=== PATIENT | male | born 1950 | race Caucasian/White ===

== ENCOUNTER 2020-05-30 20:08 | Emergency (ER) | payer MEDICARE ==
[~2020-05-30] VITALS: Ht 182.9 cm; Wt 86.0 kg
[2020-05-30 20:57] LABS: BASOPHILS # (AUTO) 0.1 X10'3 (0-0.2); BASOPHILS % (AUTO) 0.7 % (0-1); EOSINOPHILS # (AUTO) 0.1 X10'3 (0-0.9); EOSINOPHILS % (AUTO) 1.5 % (0-6); HEMATOCRIT 46.4 % (42.0-52.0); HEMOGLOBIN 15.7 g/dl (14.0-17.9); LYMPHOCYTES # (AUTO) 0.9 X10'3 (1.1-4.8); LYMPHOCYTES % (AUTO) 10.7 % (21-51); MEAN CORPUSCULAR HEMOGLOBIN 30.9 PG (27.0-31.0); MEAN CORPUSCULAR HGB CONC 33.9 g/dL (33.0-36.5); MEAN PLATELET VOLUME 8.3 FL (7.4-10.4); MONOCYTES # (AUTO) 0.5 X10'3 (0-0.9); NEUTROPHILS % (AUTO) 81.1 % (42-75); PLATELET COUNT 144 X10'3 (140-440); RED CELL DISTRIBUTION WIDTH 14.4 % (11.5-14.5); WHITE BLOOD COUNT 8.7 X10'3 (4.5-11.0)
[2020-05-30 21:09] LABS: ALANINE AMINOTRANSFERASE 22 U/L (12-78); ALBUMIN 3.7 G/DL (3.4-5.0); ALKALINE PHOSPHATASE 103 IU/L (46-116); ANION GAP 13 (8-16); ASPARTATE AMINO TRANSFERASE 16 U/L (10-37); BILIRUBIN,TOTAL 0.8 MG/DL (0.1-1.0); BLOOD UREA NITROGEN 13 MG/DL (7-18); BUN/CREATININE RATIO 13.1 (5.4-32.0); CALCIUM 8.8 MG/DL (8.5-10.1); CHLORIDE 104 MMOL/L (99-107); CREATININE 0.99 MG/DL (0.60-1.10); GLUCOSE 154 MG/DL (70-104); POTASSIUM 3.6 MMOL/L (3.5-5.1); SODIUM 140 MMOL/L (135-145); TOTAL CARBON DIOXIDE 23.4 MMOL/L (24-32); TOTAL PROTEIN 7.3 G/DL (6.4-8.2); eGFR 75 ML/MIN
[2020-05-30] MEDS ORDERED: AMOX-14 PO (22:01)
[2020-05-30] MEDS ORDERED: AZIT-63 PO (22:01)
[2020-05-30] MEDS ORDERED: ALBU8.5H8 INH (22:12)
[2020-05-30] MEDS ORDERED: ketorolac tromethamine 15mg/ml inj. IV ONE (22:20)
[2020-05-30 22:49] VITALS: BP 139/81
== END 2020-05-30 22:51 | disposition home or self-care (01) ==
LOC: ER 20:09
DX: J90 Pleural effusion, not elsewhere classified (principal); I10 Essential (primary) hypertension; F12.90 Cannabis use, unspecified, uncomplicated; Z87.891 Personal history of nicotine dependence; Z79.899 Other long term (current) drug therapy
CPT/HCPCS: 36415; 71045; 80053; 83880; 84484; 85025; 93005; 96374; 99285; J1885

== ENCOUNTER 2020-06-09 12:30 | Inpatient (IN) | payer MEDICARE, OTHER ==
[2020-06-09] VITALS (14 sets, daily range): BP systolic 127–160; BP diastolic 71–95
[~2020-06-09] VITALS: Ht 182.9 cm; Wt 86.8 kg
[~2020-06-09 12:30] MED LIST: ALBU8.5H8 INH
[2020-06-09 12:58] LABS: BASOPHILS # (AUTO) 0.1 X10'3 (0-0.2); BASOPHILS % (AUTO) 0.6 % (0-1); EOSINOPHILS % (AUTO) 0.1 % (0-6); HEMATOCRIT 32.8 % (42.0-52.0); HEMOGLOBIN 10.9 g/dl (14.0-17.9); LYMPHOCYTES # (AUTO) 1.1 X10'3 (1.1-4.8); LYMPHOCYTES % (AUTO) 4.9 % (21-51); MEAN CORPUSCULAR HEMOGLOBIN 30.5 PG (27.0-31.0); MEAN CORPUSCULAR HGB CONC 33.1 g/dL (33.0-36.5); MEAN CORPUSCULAR VOLUME 92.2 FL (78-98); MONOCYTES # (AUTO) 0.8 X10'3 (0-0.9); MONOCYTES % (AUTO) 3.5 % (2-12); NEUTROPHILS # (AUTO) 20.9 X10'3 (1.8-7.7); NEUTROPHILS % (AUTO) 90.9 % (42-75); PLATELET COUNT 550 X10'3 (140-440); RED BLOOD COUNT 3.56 X10'6 (4.70-6.10)
[2020-06-09 13:04] LABS: ALANINE AMINOTRANSFERASE 35 U/L (12-78); ALBUMIN 2.9 G/DL (3.4-5.0); ALBUMIN/GLOBULIN RATIO 0.7 (1.1-1.5); ALKALINE PHOSPHATASE 105 IU/L (46-116); ANION GAP 12 (8-16); ASPARTATE AMINO TRANSFERASE 18 U/L (10-37); BILIRUBIN,TOTAL 0.6 MG/DL (0.1-1.0); BLOOD UREA NITROGEN 18 MG/DL (7-18); BUN/CREATININE RATIO 16.7 (5.4-32.0); CALCIUM 9.3 MG/DL (8.5-10.1); CHLORIDE 98 MMOL/L (99-107); CREATININE 1.08 MG/DL (0.60-1.10); GLUCOSE 154 MG/DL (70-104); POTASSIUM 3.5 MMOL/L (3.5-5.1); SODIUM 133 MMOL/L (135-145); TOTAL CARBON DIOXIDE 23.3 MMOL/L (24-32); eGFR 68 ML/MIN
[2020-06-09] MEDS ORDERED: ondansetron/PF 4mg/2ml inj IV ONE (13:15)
[2020-06-09] MEDS ORDERED: morphine 4 MG/ML inj SYRINge IV ONE (13:15)
[2020-06-09] MEDS ORDERED: normal saline 1000ML IV soln IV ONE (13:45)
[2020-06-09] MEDS ORDERED: piperacillin/tazo 3.375gm/50ml 50 ML IV ONE (13:45)
[2020-06-09] MEDS ORDERED: iohexol 300mg/ml 100ml inj. ONE (14:17)
[2020-06-09] MEDS ORDERED: morphine 10mg/ml inj. IV ONE (14:45)
[2020-06-09] MEDS ORDERED: NO HOME MEDS (15:49)
[2020-06-09] MEDS ORDERED: famotidine/PF 10 mg/ml inj IV ONE (17:21)
[2020-06-09] MEDS ORDERED: mag hydrox/Alum hydrox/simeth 30ml oral suspension PO PRN (17:45)
[2020-06-09] MEDS ORDERED: magnesium hydroxide 30ml (MOM) UD suspension PO PRN (17:45)
[2020-06-09] MEDS ORDERED: morphine 2 MG/ML inj. syringe IV PRN ×2 (17:45→18:25)
[2020-06-09] MEDS ORDERED: acetaminophen 325mg tablet PO PRN (17:45)
[2020-06-09] MEDS ORDERED: ondansetron/PF 4mg/2ml inj IV PRN ×3 (17:45→19:30)
[2020-06-09] MEDS ORDERED: sevoflurane 250ml liquid IH ONE (17:46)
[2020-06-09] MEDS ORDERED: fentaNYL /PF 50mcg/ml 5ml ampule ONE (17:52)
[2020-06-09] MEDS ORDERED: midazolam 1 mg/ML 2ml injection ONE (17:52)
[2020-06-09] MEDS ORDERED: LIDOcaine 2% (20mg/ml) 5ml vial ONE (18:13)
[2020-06-09] MEDS ORDERED: propofol inj 20 ML IV ONE (18:13)
[2020-06-09] MEDS ORDERED: ceFOXitin 1000 MG inj ONE ×2 (18:13)
[2020-06-09] MEDS ORDERED: rocuronium 10mg/ml inj IV ONE ×2 (18:13→18:14)
[2020-06-09] MEDS ORDERED: morphine 4 MG/ML inj SYRINge IV PRN (18:25)
[2020-06-09] MEDS ORDERED: acetaminophen 1,000mg/100ml IV 100 ML IV PRN (18:25)
[2020-06-09] MEDS ORDERED: hydrALAZINE 20mg/ml inj. IV PRN (18:25)
[2020-06-09] MEDS ORDERED: proCHLORperazine 10 MG/2 ml inj IV PRN (18:25)
[2020-06-09] MEDS ORDERED: meperidine/PF 25mg/ml syringe IV PRN ×2 (18:25)
[2020-06-09] MEDS ORDERED: labetalol 20mg/4ml (5mg/ml) syringe IV PRN (18:25)
[2020-06-09] MEDS ORDERED: ringers solution, lacted 1,000 ML IV SCH (18:25)
[2020-06-09] MEDS ORDERED: dexamethasone sod phosphate 4mg/ml inj. ONE (18:56)
[2020-06-09] MEDS ORDERED: ondansetron/PF 4mg/2ml inj ONE (18:56)
[2020-06-09] MEDS ORDERED: BUPIVAcaine/PF 2.5mg/ml (0.25%) 10ml vial ONE (19:00)
[2020-06-09] MEDS ORDERED: BUPIVACAINE liposomal/PF 13.3 MG/ML vial IM ONE (19:00)
[2020-06-09] MEDS ORDERED: neostigmine methylsulfate 1 MG/ML 10ml vial ONE (19:35)
[2020-06-09] MEDS ORDERED: glycopyrrolate 0.2mg/ml inj ONE (19:36)
--- NOTE | 2020-06-09 19:44 | NUR ---
Received from OR via BED, accompanied by Anesthesiologist ALEX and report given by Anesthesiolgist. PT. ARRIVED ON 10 L. O2 VIA MASK. VSS. RITO DRAIN AT ABDOMEN DRESSING 30 ML SEROSANGUINOUS FLUID NOTED. OSPINA CATH DRAINING TO GRAVITY. LR INFUSING AT 100 ML/HR. PULSES NOTED IN ALL EXTREMITIES WITH SENSATION. STRONG DIRECTOR OF SALES AND PUSH PULL. NG TUBE TO LOW INTERMITTENT SUCTION. SCDS IN PLACE. PAIN NOTED 10/17. TYLENOL INFUSING, PROTONIX DRIP TO BE STARTED. WILL PURSUE PRN PAIN MED. NSR. Addendum: 06/09/20 at 2050 by Yandy Olsen RN Amended: Links added.
[2020-06-09] MEDS ORDERED: famotidine/PF IV inj 20 MG in normal saline 100ml IV soln 100 ML IV SCH (20:00)
[2020-06-09] MEDS: pantoprazole 40MG/NS 100ML BAG 100 ML IV SCH ×2 (20:06→21:00)
[2020-06-09] MEDS: meperidine/PF 25mg/ml syringe IV PRN ×2 (20:30→20:51)
--- NOTE | 2020-06-09 21:10 | NUR ---
Report received from Yandy CHOWDHURY in Recovery Room.
--- NOTE | 2020-06-09 21:14 | NUR ---
REPORT CALLED TO JACQUELINE. ALL DC CRITERIA MET. [facility]. NG TUBE ON CONTINUOUS LOW SUCTION. NO NOTABLE DRAINAGE. FC DRAINING TO GRAVITY,STRAW COLORED URINE NOTED. RITO DRAIN WITH 30 ML SEROSANGUINOUS DRAINAGE NOTED. ABD. DRESSING CDI. IV IN L. NECK 20 G. WITH PROTONIX INFUSING AT 20 M L/HR CDI, LR IN L. FA IV CDI INFUSING AT 100 ML/HR. DEMEROL 25 MG X 2 GIVEN WITH ADEQUATE PAIN RELIEF. TYLENOL GIVEN EARLIER IN PACU WITH SOME RESULTS. SCD'S IN PLACE. TELE-MONITOR WITH PT. PT. TOLERATED TRANSFER WELL. FAMILY FOLLOWED PT. UP TO ROOM. Addendum: 06/09/20 at 2126 by Yandy Olsen RN Amended: Links added.
--- NOTE | 2020-06-09 21:15 | NUR ---
Patient arrived on unit from recovery room. Placed is 3018A. NG suction set to low continuous, RITO drain intact and draining serosanguinous fluid, whitten catheter, abdominal dressing clean and dry. Vital signs stable. O2 therapy via nasal cannula 2L/min.
[2020-06-09] MEDS: normal saline 1000ml 1,000 ML IV SCH (21:57)
[2020-06-09] MEDS: famotidine/PF 10 mg/ml inj IV SCH (21:58)
[2020-06-09] MEDS: potassium CL 20mEq in D5-1/2NS 1,000 ML IV SCH (22:29)
[2020-06-09] MEDS: morphine 2 MG/ML inj. syringe IV PRN (22:54)
[2020-06-10] VITALS (12 sets, daily range): BP systolic 110–140; BP diastolic 61–90
[2020-06-10] MEDS ORDERED: piperacillin/tazo 3.375gm/50ml 50 ML IV SCH
[2020-06-10] MEDS: piperacillin/tazo 4.5gm/100ml 100 ML IV SCH ×4 (00:04→23:49)
[2020-06-10] MEDS: pantoprazole 40MG/NS 100ML BAG 100 ML IV SCH ×5 (00:59→21:40)
[2020-06-10 01:37] LABS: BASOPHILS % (AUTO) 0.1 % (0-1); EOSINOPHILS % (AUTO) 0 % (0-6); HEMATOCRIT 29.5 % (42.0-52.0); HEMOGLOBIN 9.8 g/dl (14.0-17.9); LYMPHOCYTES # (AUTO) 0.5 X10'3 (1.1-4.8); LYMPHOCYTES % (AUTO) 1.8 % (21-51); MEAN CORPUSCULAR HEMOGLOBIN 30.9 PG (27.0-31.0); MEAN CORPUSCULAR HGB CONC 33.3 g/dL (33.0-36.5); MEAN CORPUSCULAR VOLUME 92.8 FL (78-98); MEAN PLATELET VOLUME 7.8 FL (7.4-10.4); MONOCYTES # (AUTO) 0.4 X10'3 (0-0.9); MONOCYTES % (AUTO) 1.5 % (2-12); NEUTROPHILS % (AUTO) 96.6 % (42-75); PLATELET COUNT 531 X10'3 (140-440); RED BLOOD COUNT 3.18 X10'6 (4.70-6.10); RED CELL DISTRIBUTION WIDTH 14.2 % (11.5-14.5)
--- NOTE | 2020-06-10 01:46 | NUR ---
Called critical value to Dr. Jackson. WBC 29.0, previously 23.0. No new orders. Doctor stated "Okay, thank you."
[2020-06-10 01:49] LABS: ALBUMIN 1.9 G/DL (3.4-5.0); ANION GAP 8 (8-16); BLOOD UREA NITROGEN 19 MG/DL (7-18); CALCIUM 7.5 MG/DL (8.5-10.1); CHLORIDE 105 MMOL/L (99-107); GLUCOSE 167 MG/DL (70-104); POTASSIUM 4.8 MMOL/L (3.5-5.1); SODIUM 135 MMOL/L (135-145); TOTAL CARBON DIOXIDE 21.9 MMOL/L (24-32); eGFR 74 ML/MIN
[2020-06-10] MEDS: morphine 2 MG/ML inj. syringe IV PRN ×2 (02:57→17:17)
[2020-06-10 03:06] LABS: TOTAL CELLS COUNTED 100
[2020-06-10 03:07] LABS: PLATELET ESTIMATE INCREASED
[2020-06-10] MEDS: normal saline 1000ml 1,000 ML IV SCH ×3 (03:30→23:45)
[2020-06-10] MEDS: potassium CL 20mEq in D5-1/2NS 1,000 ML IV SCH ×4 (03:30→23:49)
--- NOTE | 2020-06-10 06:15 | NUR ---
Problems reprioritized. Patient report given, questions answered & plan of care reviewed with Salina CHOWDHURY and Missy CHOWDHURY.
--- NOTE | 2020-06-10 06:48 | NUR ---
Patient in room PCU 3018. I have received report from TRENTON Baez and had the opportunity to ask questions and assume patient care. Patient asleep in bed and in no acute distress.
[2020-06-10] MEDS ORDERED: enoxaparin 40mg/0.4ml syringe SUBCUT SCH (08:00)
[2020-06-10] MEDS: famotidine/PF 10 mg/ml inj IV SCH ×2 (08:12→20:07)
[2020-06-10] MEDS ORDERED: NORMAL SALINE IV SCH (14:55)
[2020-06-10] MEDS ORDERED: ALTEPLASE IV SCH (14:55)
[2020-06-10] MEDS ORDERED: ANGIO IV SCH (14:55)
[2020-06-10] MEDS ORDERED: TPA CATHFLO IVF SCH (15:20)
[2020-06-10] MEDS ORDERED: FLUSH IVF SCH (15:20)
[2020-06-10] MEDS ORDERED: FLUSH IVF ONE (15:20)
[2020-06-10] MEDS ORDERED: TPA CATHFLO IVF ONE (15:20)
[2020-06-10] MEDS ORDERED: NORMAL SALINE IVF SCH (15:20)
[2020-06-10] MEDS ORDERED: NORMAL SALINE IVF ONE (15:20)
--- NOTE | 2020-06-10 17:31 | NUR ---
[place] documentation: I have reviewed and agree with all interventions, assessments performed and documented by TRENTON Louis.
--- NOTE | 2020-06-10 17:31 | NUR ---
[place] Medication Administration: For this medication-pass time frame, all medication were reviewed, dispensed, administered and documented per hospital policy by TRENTON Louis.
--- NOTE | 2020-06-10 17:46 | NUR ---
Dr. Asencio called back and said that she did not want to discharge patient today because she wants orthostatics vitals before discharge. Addendum: 06/10/20 at 1809 by Salina Bearden RN wrong patient.
[2020-06-10 17:48] LABS: GLUCOSE,BODY FLUID 117 MG/DL; LDH,BODY FLUID 561 U/L
--- NOTE | 2020-06-10 18:09 | NUR ---
Problems reprioritized. Patient report given, questions answered & plan of care reviewed with TRENTON Baez. Patient stable at transfer of care.
[2020-06-10 18:26] LABS: BF RBC COUNT 893 /CU MM; BF WBC COUNT 353 /CU MM (0-1000); BFAPPEAR CLEAR; BFCOLOR YELLOW; BFVOLUME 40 ML
--- NOTE | 2020-06-10 18:26 | NUR ---
Patient in room PCU 3018. I have received report from Salina Haley and Missy HALEY and had the opportunity to ask questions and assume patient care. Patient stable. Introduced self to patient and discussed plan of care.
[2020-06-10 18:45] LABS: LYMPHOCYTES,BODY FLUID 81 %; MONOCYTES,BODY FLUID 11 %; NEUTROPHILS,BODY FLUID 8 %
[2020-06-10] MEDS: lactobacillus rhamnosus 10,000 MMU CELLS/CAPSULE PO SCH (20:00)
--- NOTE | 2020-06-10 20:00 | NUR ---
Chest tube unclamped and set to suction per orders. 600 ml of serosanguinous fluid out.
[2020-06-10] MEDS: HYDROmorphone 1 mg/ml syringe IV PRN (20:08)
--- NOTE | 2020-06-10 23:21 | NUR ---
NG tube removed per orders, patient tolerated well.
[2020-06-11] MEDS: HYDROmorphone 1 mg/ml syringe IV PRN ×3 (00:09→21:07)
[2020-06-11 02:00] VITALS: BP 109/65
[2020-06-11] MEDS: pantoprazole 40MG/NS 100ML BAG 100 ML IV SCH ×5 (03:00→19:36)
[2020-06-11] MEDS: morphine 2 MG/ML inj. syringe IV PRN (05:15)
--- NOTE | 2020-06-11 05:45 | NUR ---
Patient tolerated chest tube well. Had 875mL out since being unclamped at 1999. No SQ emphysema at insertion site, serosanguinous drainage, insertion site without hematoma.
--- NOTE | 2020-06-11 06:40 | NUR ---
Problems reprioritized. Patient report given, questions answered & plan of care reviewed with Leonor CHOWDHURY and Edward RN. Patient stable and discussed plan of care..
--- NOTE | 2020-06-11 06:49 | NUR ---
Patient in room PCU 3018. I have received report from Sasha CHOWDHURY and had the opportunity to ask questions and assume patient care. Pt awake, deny SOB, appears comfortable.
--- NOTE | 2020-06-11 06:51 | NUR ---
Patient in room PCU 3018. I have received report from Sasha CHOWDHURY and had the opportunity to ask questions and assume patient care. Pt supine in bed, chest tube patent, draining serosanguinous output, attached to wall suction at 20mmHG, pt alert and verbal. protonix @ 40ml, KCL @ 125ml, NS @100ml.
[2020-06-11 07:00] VITALS: BP 130/71
[2020-06-11 07:52] LABS: BASOPHILS % (AUTO) 0.1 % (0-1); EOSINOPHILS # (AUTO) 0.1 X10'3 (0-0.9); EOSINOPHILS % (AUTO) 0.4 % (0-6); HEMATOCRIT 23.9 % (42.0-52.0); LYMPHOCYTES # (AUTO) 0.7 X10'3 (1.1-4.8); LYMPHOCYTES % (AUTO) 2.9 % (21-51); MEAN CORPUSCULAR HEMOGLOBIN 31.4 PG (27.0-31.0); MEAN CORPUSCULAR HGB CONC 33.6 g/dL (33.0-36.5); MEAN CORPUSCULAR VOLUME 93.5 FL (78-98); MEAN PLATELET VOLUME 7.8 FL (7.4-10.4); MONOCYTES # (AUTO) 0.8 X10'3 (0-0.9); MONOCYTES % (AUTO) 3.1 % (2-12); NEUTROPHILS # (AUTO) 23.2 X10'3 (1.8-7.7); NEUTROPHILS % (AUTO) 93.5 % (42-75); PLATELET COUNT 533 X10'3 (140-440); RED BLOOD COUNT 2.55 X10'6 (4.70-6.10); RED CELL DISTRIBUTION WIDTH 14.4 % (11.5-14.5); WHITE BLOOD COUNT 24.8 X10'3 (4.5-11.0)
[2020-06-11 08:16] LABS: ALBUMIN 1.7 G/DL (3.4-5.0); ANION GAP 7 (8-16); BLOOD UREA NITROGEN 12 MG/DL (7-18); BUN/CREATININE RATIO 13.3 (5.4-32.0); CALCIUM 7.7 MG/DL (8.5-10.1); CHLORIDE 104 MMOL/L (99-107); GLUCOSE 120 MG/DL (70-104); POTASSIUM 4.2 MMOL/L (3.5-5.1); SODIUM 135 MMOL/L (135-145); TOTAL CARBON DIOXIDE 23.9 MMOL/L (24-32); eGFR 84 ML/MIN
[2020-06-11] MEDS: potassium CL 20mEq in D5-1/2NS 1,000 ML IV SCH ×2 (08:37→16:54)
[2020-06-11] MEDS: piperacillin/tazo 4.5gm/100ml 100 ML IV SCH ×2 (08:42→17:24)
[2020-06-11] MEDS: normal saline 1000ml 1,000 ML IV SCH ×2 (09:08→17:24)
[2020-06-11] MEDS: lactobacillus rhamnosus 10,000 MMU CELLS/CAPSULE PO SCH ×2 (09:14→19:36)
[2020-06-11] MEDS ORDERED: tPA-cathflo 2mg/2ml IV flush 5 MG in normal saline 100ml IV soln 50 ML ICATH ONE (10:45)
[2020-06-11] MEDS ORDERED: tPA-cathflo 2mg/2ml IV flush 2 MG in normal saline 100ml IV soln 20 ML ICATH ONE ×2 (10:55→11:00)
[2020-06-11 11:00] VITALS: BP 134/73
[2020-06-11 15:00] VITALS: BP 128/68
--- NOTE | 2020-06-11 17:00 | NUR ---
F/C d/c'd whitten d/c'd at noon. Cannula intact. pt voided 250ml by 1700. urine yellow. no discomfort.
--- NOTE | 2020-06-11 18:28 | NUR ---
Problems reprioritized. Patient report given, questions answered & plan of care reviewed with Sasha CHOWDHURY. Pt alert to voice, SRx2, BLL, CL withinr each. Chest tube patent.
--- NOTE | 2020-06-11 18:54 | NUR ---
Patient in room PCU 3018. I have received report from Leonor RN and Edward Rn and had the opportunity to ask questions and assume patient care. Chest tube secured, serosanguinous drainage, marked at 1310 mL at 1835. Patient stable.
[2020-06-11 19:40] VITALS: BP 135/78
[2020-06-11] MEDS: enoxaparin 40mg/0.4ml syringe SUBCUT SCH (21:08)
--- NOTE | 2020-06-11 21:59 | NUR ---
Abdominal dressing changed and packing removed. Dressed with gauze sponges, ABD pad and paper tape. 9 domingo, edges well approximated, no signs of infection. Patient tolerated well. Minimal serous drainage.
[2020-06-11 22:00] VITALS: BP_SYST 108; BP_SYST 131; BP_DIAS 59; BP_DIAS 70
[2020-06-11] MEDS: fluconazole-Diflucan 100MG/NS 50 ML IV SCH (23:14)
[2020-06-12] MEDS: piperacillin/tazo 4.5gm/100ml 100 ML IV SCH ×4 (00:15→23:21)
[2020-06-12] MEDS: pantoprazole 40MG/NS 100ML BAG 100 ML IV SCH ×5 (00:21→23:21)
[2020-06-12] MEDS: potassium CL 20mEq in D5-1/2NS 1,000 ML IV SCH ×3 (00:55→17:28)
[2020-06-12] MEDS: morphine 2 MG/ML inj. syringe IV PRN (01:04)
[2020-06-12 02:00] VITALS: BP 123/68
[2020-06-12] MEDS: normal saline 1000ml 1,000 ML IV SCH ×2 (04:08→12:07)
--- NOTE | 2020-06-12 06:36 | NUR ---
Problems reprioritized. Patient report given, questions answered & plan of care reviewed with Leonor CHOWDHURY. Patient stable. Chest tube dainage 1480ml total in canister. .
[2020-06-12 07:00] VITALS: BP 123/69
[2020-06-12 07:00] LABS: BASOPHILS % (AUTO) 0.1 % (0-1); EOSINOPHILS # (AUTO) 0.1 X10'3 (0-0.9); EOSINOPHILS % (AUTO) 0.7 % (0-6); HEMOGLOBIN 8.1 g/dl (14.0-17.9); LYMPHOCYTES # (AUTO) 0.7 X10'3 (1.1-4.8); LYMPHOCYTES % (AUTO) 3.4 % (21-51); MEAN CORPUSCULAR HEMOGLOBIN 31.2 PG (27.0-31.0); MEAN CORPUSCULAR HGB CONC 33.6 g/dL (33.0-36.5); MONOCYTES # (AUTO) 0.9 X10'3 (0-0.9); MONOCYTES % (AUTO) 4.1 % (2-12); NEUTROPHILS # (AUTO) 19.2 X10'3 (1.8-7.7); NEUTROPHILS % (AUTO) 91.7 % (42-75); PLATELET COUNT 598 X10'3 (140-440); RED BLOOD COUNT 2.58 X10'6 (4.70-6.10); RED CELL DISTRIBUTION WIDTH 14.6 % (11.5-14.5); WHITE BLOOD COUNT 20.9 X10'3 (4.5-11.0)
--- NOTE | 2020-06-12 07:02 | NUR ---
Patient in room PCU 3018. I have received report from Sasha and had the opportunity to ask questions and assume patient care. Pt alert to voice, supine with HOB at 20 degrees, Chest tube patent, RITO patent, protonix@8;KCL@125,NS@100. no sob. CL within reach, SRx2, BLL. no s/sx acute distress.
[2020-06-12 07:04] LABS: ALBUMIN 1.6 G/DL (3.4-5.0); ANION GAP 6 (8-16); BLOOD UREA NITROGEN 6 MG/DL (7-18); BUN/CREATININE RATIO 7.5 (5.4-32.0); CALCIUM 7.7 MG/DL (8.5-10.1); CHLORIDE 104 MMOL/L (99-107); GLUCOSE 116 MG/DL (70-104); POTASSIUM 3.9 MMOL/L (3.5-5.1); SODIUM 135 MMOL/L (135-145); TOTAL CARBON DIOXIDE 24.9 MMOL/L (24-32); eGFR > 90 ML/MIN
[2020-06-12] MEDS: lactobacillus rhamnosus 10,000 MMU CELLS/CAPSULE PO SCH ×2 (07:59→19:17)
[2020-06-12] MEDS: fluconazole-Diflucan 100MG/NS 50 ML IV SCH (08:04)
[2020-06-12] MEDS: HYDROmorphone 1 mg/ml syringe IV PRN ×2 (10:05→23:21)
[2020-06-12] MEDS ORDERED: tPA-cathflo 2mg/2ml IV flush 2 MG in normal saline 100ml IV soln 20 ML ICATH ONE ×4 (10:45)
[2020-06-12 11:00] VITALS: BP 133/74
[2020-06-12 15:00] VITALS: BP 125/71
[2020-06-12] MEDS: fluconazole/NS 400mg/200ml bag 200 ML IV SCH (15:36)
[2020-06-12 16:01] LABS: H PYLORI ANTIBODY NEGATIVE (Neg)
[2020-06-12 18:00] VITALS: BP 130/71
[2020-06-12] MEDS ORDERED: fluconazole 100mg tablet PO SCH (18:00)
--- NOTE | 2020-06-12 18:21 | NUR ---
Patient in room PCU 3018. I have received report from Leonor CHOWDHURY and had the opportunity to ask questions and assume patient care.
--- NOTE | 2020-06-12 18:23 | NUR ---
Problems reprioritized. Patient report given, questions answered & plan of care reviewed with Raymundo CHOWDHURY. Chest tube/RITO drain/Drips reviewed with Raymundo CHOWDHURY. pt semi fowlers in bed, no sob, CL within reach, SRx2, BLL no s/sx acute distress.
[2020-06-12] MEDS: enoxaparin 40mg/0.4ml syringe SUBCUT SCH (19:17)
--- NOTE | 2020-06-12 20:52 | NUR ---
call to Dr. Jackson regarding IV NS at 100ml/hr and D5 1/2 NS w/ 20meq KCL at 125ml/hr, received order to DC NS.
[2020-06-12 22:00] VITALS: BP 149/76
[2020-06-13] MEDS: HYDROmorphone 1 mg/ml syringe IV PRN ×6 (00:47→22:36)
[2020-06-13 02:00] VITALS: BP 123/71
[2020-06-13] MEDS: potassium CL 20mEq in D5-1/2NS 1,000 ML IV SCH ×4 (02:18→20:12)
[2020-06-13] MEDS: pantoprazole 40MG/NS 100ML BAG 100 ML IV SCH ×5 (02:20→20:11)
--- NOTE | 2020-06-13 06:00 | NUR ---
Patient in room PCU 3018. I have received report from Raymundo CHOWDHURY and had the opportunity to ask questions and assume patient care. Patient is awake, states that his pain is 3/10. updated the board and cleaned bedside table,
--- NOTE | 2020-06-13 06:04 | NUR ---
Problems reprioritized. Patient report given, questions answered & plan of care reviewed with Zuleima RN.
[2020-06-13 07:12] VITALS: BP 141/80
[2020-06-13 07:55] LABS: BASOPHILS % (AUTO) 0.2 % (0-1); HEMOGLOBIN 7.3 g/dl (14.0-17.9); LYMPHOCYTES # (AUTO) 0.7 X10'3 (1.1-4.8); LYMPHOCYTES % (AUTO) 3.8 % (21-51); MEAN PLATELET VOLUME 6.9 FL (7.4-10.4); NEUTROPHILS # (AUTO) 15.8 X10'3 (1.8-7.7); WHITE BLOOD COUNT 17.7 X10'3 (4.5-11.0)
[2020-06-13 07:57] LABS: EOSINOPHILS # (AUTO) 0.3 X10'3 (0-0.9); EOSINOPHILS % (AUTO) 1.5 % (0-6); HEMATOCRIT 22.1 % (42.0-52.0); MEAN CORPUSCULAR HEMOGLOBIN 30.5 PG (27.0-31.0); MEAN CORPUSCULAR VOLUME 92.4 FL (78-98); MONOCYTES % (AUTO) 5.4 % (2-12); NEUTROPHILS % (AUTO) 89.1 % (42-75); PLATELET COUNT 599 X10'3 (140-440); RED BLOOD COUNT 2.39 X10'6 (4.70-6.10); RED CELL DISTRIBUTION WIDTH 14.4 % (11.5-14.5)
[2020-06-13 08:04] LABS: ALBUMIN 1.4 G/DL (3.4-5.0); ANION GAP 7 (8-16); BLOOD UREA NITROGEN 4 MG/DL (7-18); BUN/CREATININE RATIO 4.9 (5.4-32.0); CALCIUM 7.6 MG/DL (8.5-10.1); CHLORIDE 105 MMOL/L (99-107); CREATININE 0.81 MG/DL (0.60-1.10); GLUCOSE 112 MG/DL (70-104); POTASSIUM 3.8 MMOL/L (3.5-5.1); SODIUM 138 MMOL/L (135-145); TOTAL CARBON DIOXIDE 25.7 MMOL/L (24-32); eGFR > 90 ML/MIN
[2020-06-13] MEDS: lactobacillus rhamnosus 10,000 MMU CELLS/CAPSULE PO SCH ×2 (08:31→20:12)
[2020-06-13] MEDS: piperacillin/tazo 4.5gm/100ml 100 ML IV SCH ×3 (08:31→23:08)
[2020-06-13] MEDS: fluconazole/NS 400mg/200ml bag 200 ML IV SCH (08:31)
[2020-06-13 11:26] VITALS: BP 126/77
[2020-06-13 16:49] VITALS: BP 133/68
[2020-06-13 18:00] VITALS: BP 126/72
--- NOTE | 2020-06-13 18:10 | NUR ---
Patient in room PCU 3018. I have received report from Zuleima TRENTON and had the opportunity to ask questions and assume patient care.
[2020-06-13] MEDS ORDERED: magnesium hydroxide 30ml (MOM) UD suspension PO ONE (20:00)
[2020-06-13] MEDS: enoxaparin 40mg/0.4ml syringe SUBCUT SCH (20:12)
[2020-06-13 22:00] VITALS: BP 143/74
[2020-06-14] MEDS: pantoprazole 40MG/NS 100ML BAG 100 ML IV SCH ×5 (00:48→20:11)
[2020-06-14 02:00] VITALS: BP 144/83
[2020-06-14] MEDS: HYDROmorphone 1 mg/ml syringe IV PRN ×4 (04:46→22:01)
[2020-06-14] MEDS: potassium CL 20mEq in D5-1/2NS 1,000 ML IV SCH ×3 (04:47→23:33)
--- NOTE | 2020-06-14 06:00 | NUR ---
Patient in room PCU 3018. I have received report from Deanne CHOWDHURY and had the opportunity to ask questions and assume patient care.
--- NOTE | 2020-06-14 06:02 | NUR ---
Problems reprioritized. Patient report given, questions answered & plan of care reviewed with TRENTON Dewey..
[2020-06-14 07:03] LABS: HEMATOCRIT 23.4 % (42.0-52.0); LYMPHOCYTES # (AUTO) 0.6 X10'3 (1.1-4.8); MEAN CORPUSCULAR HEMOGLOBIN 30.9 PG (27.0-31.0); MONOCYTES # (AUTO) 0.9 X10'3 (0-0.9); NEUTROPHILS # (AUTO) 11.7 X10'3 (1.8-7.7); RED BLOOD COUNT 2.54 X10'6 (4.70-6.10); WHITE BLOOD COUNT 13.5 X10'3 (4.5-11.0)
[2020-06-14 07:04] LABS: BASOPHILS % (AUTO) 0.3 % (0-1); EOSINOPHILS # (AUTO) 0.2 X10'3 (0-0.9); EOSINOPHILS % (AUTO) 1.6 % (0-6); HEMOGLOBIN 7.8 g/dl (14.0-17.9); LYMPHOCYTES % (AUTO) 4.3 % (21-51); MEAN CORPUSCULAR HGB CONC 33.6 g/dL (33.0-36.5); MEAN CORPUSCULAR VOLUME 91.8 FL (78-98); MEAN PLATELET VOLUME 6.8 FL (7.4-10.4); MONOCYTES % (AUTO) 6.7 % (2-12); NEUTROPHILS % (AUTO) 87.1 % (42-75); PLATELET COUNT 680 X10'3 (140-440); RED CELL DISTRIBUTION WIDTH 14.6 % (11.5-14.5)
[2020-06-14 07:13] LABS: ALBUMIN 1.4 G/DL (3.4-5.0); ANION GAP 5 (8-16); BLOOD UREA NITROGEN 4 MG/DL (7-18); BUN/CREATININE RATIO 5.1 (5.4-32.0); CALCIUM 7.8 MG/DL (8.5-10.1); CHLORIDE 106 MMOL/L (99-107); CREATININE 0.79 MG/DL (0.60-1.10); GLUCOSE 121 MG/DL (70-104); POTASSIUM 4.2 MMOL/L (3.5-5.1); SODIUM 139 MMOL/L (135-145); TOTAL CARBON DIOXIDE 28.3 MMOL/L (24-32); eGFR > 90 ML/MIN
[2020-06-14] MEDS: lactobacillus rhamnosus 10,000 MMU CELLS/CAPSULE PO SCH ×2 (08:23→20:11)
[2020-06-14] MEDS: fluconazole/NS 400mg/200ml bag 200 ML IV SCH (08:24)
[2020-06-14] MEDS: piperacillin/tazo 4.5gm/100ml 100 ML IV SCH ×2 (08:24→17:39)
[2020-06-14 11:00] VITALS: BP 126/67
--- NOTE | 2020-06-14 11:04 | NUR ---
Initial: Pt admit for perforated viscus and sepsis secondary to peritonitis. Pt s/p ex lap with repair of perforated viscus 06/09. Pt has been NPO throughout LOS, diet just advanced to regular this morning, pending first meal since diet advancement. LBM 06/09. Pt received PRN MoM 06/13. Recommend opioid antagonist with MD approval as pt receiving PRN opioids. Will continue to follow closely and make recommendations as appropriate pending further trends in PO intake. Recommendations: 1) Consider diet change to low fiber in view of recent GI surgery 2) Monitor need for ONS pending trends in PO intake 3) Consider opioid antagonist with MD approval as pt receiving PRN opioids 4) Weekly scaled weights Addendum: 06/14/20 at [address] Amended: Links added.
[2020-06-14 17:31] VITALS: BP 143/79
[2020-06-14 18:00] VITALS: BP 132/84
--- NOTE | 2020-06-14 18:30 | NUR ---
Patient in room PCU 3018. I have received report from Zuleima TRENTON and had the opportunity to ask questions and assume patient care.
[2020-06-14] MEDS: enoxaparin 40mg/0.4ml syringe SUBCUT SCH (20:11)
[2020-06-14 22:00] VITALS: BP 145/75
[2020-06-15] MEDS: pantoprazole 40MG/NS 100ML BAG 100 ML IV SCH ×5 (00:50→21:38)
[2020-06-15] MEDS: piperacillin/tazo 4.5gm/100ml 100 ML IV SCH ×4 (00:50→23:17)
[2020-06-15 02:00] VITALS: BP 139/81
[2020-06-15] MEDS: HYDROmorphone 1 mg/ml syringe IV PRN ×4 (02:15→23:16)
--- NOTE | 2020-06-15 06:26 | NUR ---
Problems reprioritized. Patient report given, questions answered & plan of care reviewed with Nichole CHOWDHURY.
--- NOTE | 2020-06-15 06:35 | NUR ---
Patient in room PCU 3018. I have received report from Dhruv CHOWDHURY and had the opportunity to ask questions and assume patient care. Patient resting in bed in no acute distress.
[2020-06-15 07:00] VITALS: BP 145/78
[2020-06-15] MEDS: fluconazole/NS 400mg/200ml bag 200 ML IV SCH (07:54)
[2020-06-15] MEDS: lactobacillus rhamnosus 10,000 MMU CELLS/CAPSULE PO SCH ×2 (07:54→21:37)
[2020-06-15] MEDS: potassium CL 20mEq in D5-1/2NS 1,000 ML IV SCH ×2 (08:02→21:37)
[2020-06-15 10:36] LABS: BASOPHILS # (AUTO) 0.1 X10'3 (0-0.2); BASOPHILS % (AUTO) 0.5 % (0-1); EOSINOPHILS # (AUTO) 0.3 X10'3 (0-0.9); EOSINOPHILS % (AUTO) 2.1 % (0-6); HEMATOCRIT 26.2 % (42.0-52.0); HEMOGLOBIN 8.6 g/dl (14.0-17.9); LYMPHOCYTES # (AUTO) 0.7 X10'3 (1.1-4.8); LYMPHOCYTES % (AUTO) 4.7 % (21-51); MEAN CORPUSCULAR HGB CONC 32.7 g/dL (33.0-36.5); MEAN PLATELET VOLUME 7.4 FL (7.4-10.4); MONOCYTES % (AUTO) 7.1 % (2-12); NEUTROPHILS # (AUTO) 11.8 X10'3 (1.8-7.7); NEUTROPHILS % (AUTO) 85.6 % (42-75); PLATELET COUNT 624 X10'3 (140-440); RED BLOOD COUNT 2.85 X10'6 (4.70-6.10); WHITE BLOOD COUNT 13.8 X10'3 (4.5-11.0)
[2020-06-15 10:49] LABS: ALANINE AMINOTRANSFERASE 37 U/L (12-78); ALBUMIN 1.6 G/DL (3.4-5.0); ALBUMIN/GLOBULIN RATIO 0.5 (1.1-1.5); ALKALINE PHOSPHATASE 97 IU/L (46-116); ANION GAP 8 (8-16); ASPARTATE AMINO TRANSFERASE 25 U/L (10-37); BILIRUBIN,TOTAL 0.3 MG/DL (0.1-1.0); BLOOD UREA NITROGEN 3 MG/DL (7-18); BUN/CREATININE RATIO 3.6 (5.4-32.0); CALCIUM 7.5 MG/DL (8.5-10.1); CHLORIDE 105 MMOL/L (99-107); CREATININE 0.84 MG/DL (0.60-1.10); GLUCOSE 134 MG/DL (70-104); POTASSIUM 3.8 MMOL/L (3.5-5.1); SODIUM 138 MMOL/L (135-145); TOTAL CARBON DIOXIDE 25.1 MMOL/L (24-32); TOTAL PROTEIN 5.1 G/DL (6.4-8.2); eGFR > 90 ML/MIN
[2020-06-15 11:00] VITALS: BP 144/81
[2020-06-15 15:00] VITALS: BP 132/79
[2020-06-15 18:00] VITALS: BP 133/80
--- NOTE | 2020-06-15 18:15 | NUR ---
Problems reprioritized. Patient report given, questions answered & plan of care reviewed with Dhruv RN. Patient resting in bed in no acute distress.
--- NOTE | 2020-06-15 18:16 | NUR ---
Patient in room PCU 3018. I have received report from Nichole CHOWDHURY and had the opportunity to ask questions and assume patient care.
[2020-06-15] MEDS: enoxaparin 40mg/0.4ml syringe SUBCUT SCH (21:38)
[2020-06-15 22:00] VITALS: BP 139/80
[2020-06-16] MEDS: pantoprazole 40MG/NS 100ML BAG 100 ML IV SCH ×3 (00:51→12:13)
[2020-06-16 02:00] VITALS: BP 145/85
[2020-06-16] MEDS: potassium CL 20mEq in D5-1/2NS 1,000 ML IV SCH ×2 (03:30→12:14)
[2020-06-16] MEDS: HYDROmorphone 1 mg/ml syringe IV PRN (04:28)
--- NOTE | 2020-06-16 06:13 | NUR ---
Patient in room PCU 3018. I have received report from Dhruv CHOWDHURY and had the opportunity to ask questions and assume patient care.
--- NOTE | 2020-06-16 06:15 | NUR ---
Problems reprioritized. Patient report given, questions answered & plan of care reviewed with Nichole CHOWDHURY.
[2020-06-16 07:00] VITALS: BP 149/82
[2020-06-16 08:22] LABS: BASOPHILS # (AUTO) 0.1 X10'3 (0-0.2); BASOPHILS % (AUTO) 0.8 % (0-1); EOSINOPHILS # (AUTO) 0.4 X10'3 (0-0.9); EOSINOPHILS % (AUTO) 2.9 % (0-6); HEMATOCRIT 28.2 % (42.0-52.0); HEMOGLOBIN 8.7 g/dl (14.0-17.9); LYMPHOCYTES % (AUTO) 7.4 % (21-51); MEAN CORPUSCULAR HEMOGLOBIN 29.8 PG (27.0-31.0); MEAN CORPUSCULAR VOLUME 96.1 FL (78-98); MEAN PLATELET VOLUME 7.3 FL (7.4-10.4); MONOCYTES # (AUTO) 1.1 X10'3 (0-0.9); MONOCYTES % (AUTO) 8.4 % (2-12); NEUTROPHILS # (AUTO) 10.8 X10'3 (1.8-7.7); NEUTROPHILS % (AUTO) 80.5 % (42-75); PLATELET COUNT 478 X10'3 (140-440); RED BLOOD COUNT 2.93 X10'6 (4.70-6.10); RED CELL DISTRIBUTION WIDTH 15.3 % (11.5-14.5); WHITE BLOOD COUNT 13.4 X10'3 (4.5-11.0)
[2020-06-16 08:30] LABS: ALANINE AMINOTRANSFERASE 51 U/L (12-78); ALBUMIN 1.6 G/DL (3.4-5.0); ALBUMIN/GLOBULIN RATIO 0.5 (1.1-1.5); ALKALINE PHOSPHATASE 101 IU/L (46-116); ANION GAP 7 (8-16); ASPARTATE AMINO TRANSFERASE 44 U/L (10-37); BILIRUBIN,TOTAL 0.3 MG/DL (0.1-1.0); BLOOD UREA NITROGEN 3 MG/DL (7-18); BUN/CREATININE RATIO 3.7 (5.4-32.0); CALCIUM 8.2 MG/DL (8.5-10.1); CHLORIDE 106 MMOL/L (99-107); CREATININE 0.82 MG/DL (0.60-1.10); GLUCOSE 92 MG/DL (70-104); POTASSIUM 3.9 MMOL/L (3.5-5.1); SODIUM 138 MMOL/L (135-145); TOTAL CARBON DIOXIDE 24.7 MMOL/L (24-32); TOTAL PROTEIN 5.1 G/DL (6.4-8.2); eGFR > 90 ML/MIN
[2020-06-16] MEDS ORDERED: TPA CATHFLO ICATH ONE ×4 (09:00)
[2020-06-16] MEDS ORDERED: FLUSH ICATH ONE ×4 (09:00)
[2020-06-16] MEDS ORDERED: NORMAL SALINE ICATH ONE ×4 (09:00)
[2020-06-16] MEDS: piperacillin/tazo 4.5gm/100ml 100 ML IV SCH ×3 (09:14→23:48)
[2020-06-16] MEDS: fluconazole/NS 400mg/200ml bag 200 ML IV SCH (09:14)
[2020-06-16] MEDS: lactobacillus rhamnosus 10,000 MMU CELLS/CAPSULE PO SCH ×2 (09:15→19:21)
[2020-06-16 11:00] VITALS: BP 155/84
--- NOTE | 2020-06-16 12:47 | NUR ---
Cathflow was administered by ELLIOT MORALES
[2020-06-16] MEDS ORDERED: HYDROcodone/acetaminophen 10/325mg tab PO PRN (13:20)
--- NOTE | 2020-06-16 14:52 | NUR ---
RITO drain removed with no complications
[2020-06-16 15:00] VITALS: BP 155/88
[2020-06-16 18:00] VITALS: BP 144/90
--- NOTE | 2020-06-16 18:32 | NUR ---
Problems reprioritized. Patient report given, questions answered & plan of care reviewed with Dhruv RN. Patient resting in bed eating and is in no acute distress.
[2020-06-16] MEDS: pantoprazole 40mg Tablet.DR PO SCH (19:21)
[2020-06-16] MEDS: enoxaparin 40mg/0.4ml syringe SUBCUT SCH (19:21)
[2020-06-16] MEDS: morphine 2 MG/ML inj. syringe IV PRN ×2 (19:25→23:48)
[2020-06-16 22:00] VITALS: BP 151/81
[2020-06-17 02:00] VITALS: BP 145/84
[2020-06-17 06:00] VITALS: BP 145/87
--- NOTE | 2020-06-17 06:26 | NUR ---
Patient in room PCU 3018. I have received report from TRENTON Lopez and had the opportunity to ask questions and assume patient care.
--- NOTE | 2020-06-17 06:35 | NUR ---
Problems reprioritized. Patient report given, questions answered & plan of care reviewed with Rose Mary CHOWDHURY.
[2020-06-17] MEDS: piperacillin/tazo 4.5gm/100ml 100 ML IV SCH ×2 (07:30→16:00)
[2020-06-17] MEDS: lactobacillus rhamnosus 10,000 MMU CELLS/CAPSULE PO SCH (07:31)
[2020-06-17] MEDS: pantoprazole 40mg Tablet.DR PO SCH (07:31)
[2020-06-17] MEDS: fluconazole/NS 400mg/200ml bag 200 ML IV SCH (07:31)
[2020-06-17 07:36] LABS: BASOPHILS # (AUTO) 0.1 X10'3 (0-0.2); EOSINOPHILS # (AUTO) 0.3 X10'3 (0-0.9); LYMPHOCYTES # (AUTO) 1.1 X10'3 (1.1-4.8); MEAN PLATELET VOLUME 6.9 FL (7.4-10.4)
[2020-06-17 07:38] LABS: BASOPHILS % (AUTO) 0.6 % (0-1); EOSINOPHILS % (AUTO) 2.5 % (0-6); HEMATOCRIT 24.9 % (42.0-52.0); HEMOGLOBIN 8.4 g/dl (14.0-17.9); LYMPHOCYTES % (AUTO) 8.5 % (21-51); MEAN CORPUSCULAR HEMOGLOBIN 30.3 PG (27.0-31.0); MEAN CORPUSCULAR HGB CONC 33.5 g/dL (33.0-36.5); MEAN CORPUSCULAR VOLUME 90.4 FL (78-98); MONOCYTES # (AUTO) 1.1 X10'3 (0-0.9); MONOCYTES % (AUTO) 8.9 % (2-12); NEUTROPHILS % (AUTO) 79.5 % (42-75); PLATELET COUNT 680 X10'3 (140-440); RED BLOOD COUNT 2.76 X10'6 (4.70-6.10); RED CELL DISTRIBUTION WIDTH 15.2 % (11.5-14.5); WHITE BLOOD COUNT 12.5 X10'3 (4.5-11.0)
[2020-06-17 09:14] LABS: ALANINE AMINOTRANSFERASE 82 U/L (12-78); ALBUMIN 1.7 G/DL (3.4-5.0); ALBUMIN/GLOBULIN RATIO 0.5 (1.1-1.5); ALKALINE PHOSPHATASE 112 IU/L (46-116); ANION GAP 9 (8-16); ASPARTATE AMINO TRANSFERASE 64 U/L (10-37); BILIRUBIN,TOTAL 0.4 MG/DL (0.1-1.0); BLOOD UREA NITROGEN 5 MG/DL (7-18); CHLORIDE 105 MMOL/L (99-107); CREATININE 0.84 MG/DL (0.60-1.10); GLUCOSE 92 MG/DL (70-104); POTASSIUM 3.6 MMOL/L (3.5-5.1); SODIUM 139 MMOL/L (135-145); TOTAL CARBON DIOXIDE 25.2 MMOL/L (24-32); TOTAL PROTEIN 5.3 G/DL (6.4-8.2); eGFR > 90 ML/MIN
[2020-06-17 11:00] VITALS: BP 147/88
--- NOTE | 2020-06-17 12:15 | NUR ---
Reassessment: Pt PO mostly 75% avg meals improving from 50% prior though continues to fluctuate partially meeting needs. Pt seen by RD for written/verbal high protein ed w/ RD contact information provided post-op. Pt reports meal portions too large and is eating until full; is agreeable to anjum [id number] for wound healing; MD notified. LBM 06/17; pt reports significant BM just prior to RD visit today. Will continue to monitor. Recommendations: 1) Consider diet change to low fiber in view of recent GI surgery 2) anjum dupont BIDLD for wounds; pending MD approval in EMR 3) routine bowel care 4) Weekly scaled weights Addendum: 06/17/20 at [address] Amended: Links added.
[2020-06-17 15:00] VITALS: BP 146/86
[2020-06-17] MEDS ORDERED: MESSAGE TO NURSING IV ONE (16:00)
--- NOTE | 2020-06-17 18:33 | NUR ---
Patient stable for transfer to [facility] per MD orders. All questions answered. Telemetry discontinued and returned to tele office. Patient departed with ambulance attendants via ambulance headed for [facility]. All belongings sent with family.
== END 2020-06-17 19:36 | DRG 853 ==
LOC: ER 12:31 → ED HOLD 17:41 → PCU 3S 21:10
PROVIDERS: ADMIT Family Medicine; ATTEND Family Medicine
PROC: 3E0T3BZ Introduction of Anesthetic Agent into Peripheral Nerves and Plexi, Percutaneous Approach (ICD-10-PCS; 2020-06-09)
PROC: 3E0T33Z Introduction of Anti-inflammatory into Peripheral Nerves and Plexi, Percutaneous Approach (ICD-10-PCS; 2020-06-09)
PROC: 0DU907Z Supplement Duodenum with Autologous Tissue Substitute, Open Approach (ICD-10-PCS; principal; 2020-06-09 17:46)
PROC: 0W9B30Z Drainage of Left Pleural Cavity with Drainage Device, Percutaneous Approach (ICD-10-PCS; 2020-06-10)
PROC: 3E0L3GC Introduction of Other Therapeutic Substance into Pleural Cavity, Percutaneous Approach (ICD-10-PCS; 2020-06-10)
DX: A41.9 Sepsis, unspecified organism (principal); K65.9 Peritonitis, unspecified; K26.1 Acute duodenal ulcer with perforation; J91.8 Pleural effusion in other conditions classified elsewhere; K56.7 Ileus, unspecified; I10 Essential (primary) hypertension; F12.90 Cannabis use, unspecified, uncomplicated; R19.5 Other fecal abnormalities; Z20.822 Contact with and (suspected) exposure to COVID-19
CPT/HCPCS: 32557; 36415; 71045; 71260; 74177; 80048; 80053; 82945; 83605; 83615; 83880; 84145; 84484; 85007; 85025; 86677; 86885; 86900; 86901; 87015; 87040; 87070; 87075; 87081; 87635; 88108; 88305; 89051; 93005; 96374; 96375; 97110; 97116; 97161; 97530; 99291; A4215; A4618; A6253; A6407; A6449; A7000; C1758; C9113; C9290; C9803; G0378; J0131; J0694; J1100; J1170; J1450; J1650; J2001; J2175; J2250; J2270; J2405; J2543; J2704; J2710; J2997; J3010; J3480; J3490; J7030; J7120; Q9967

== ENCOUNTER 2022-04-20 14:50 | Emergency (ER) | payer MEDICARE, OTHER ==
[~2022-04-20] VITALS: Ht 182.9 cm; Wt 84.1 kg
[~2022-04-20 14:50] MED LIST changes: -ALBU8.5H8 INH; +NO HOME MEDS
[2022-04-20 14:56] VITALS: BP 139/79
[2022-04-20] MEDS ORDERED: bacitracin 15gm ointment TP ONE (15:20)
[2022-04-20] MEDS ORDERED: LIDOCAINE 2%/EPI 1:100,000 inj. Multi-dose 20 ML VIAL IJ ONE (15:20)
[2022-04-20] MEDS ORDERED: TETanus/Pertussis (Acell)/Diphther VAC/PF (Tdap-Adult) 0.5ml syringe IMVAC ONE (15:20)
[2022-04-21] MEDS ORDERED: CEPH-585 PO (14:09)
== END 2022-04-20 16:12 | disposition home or self-care (01) ==
LOC: ER 14:50
DX: S60.552A Superficial foreign body of left hand, initial encounter (principal); I10 Essential (primary) hypertension; X58.XXXA Exposure to other specified factors, initial encounter; Y93.89 Activity, other specified; Y92.89 Other specified places as the place of occurrence of the external cause; Y99.8 Other external cause status
CPT/HCPCS: 73130; 90471; 90715; 99283

== ENCOUNTER 2022-04-21 13:28 | Emergency (ER) | payer MEDICARE, OTHER ==
[~2022-04-21] VITALS: Ht 182.9 cm; Wt 84.1 kg
[2022-04-21 14:02] VITALS: BP 125/81
[2022-04-21] MEDS ORDERED: CEPH-585 PO (14:09)
== END 2022-04-21 14:52 | disposition home or self-care (01) ==
LOC: ER 13:29
DX: L03.114 Cellulitis of left upper limb (principal); I10 Essential (primary) hypertension
CPT/HCPCS: 99283